=== PATIENT | male | born 2000 | race Caucasian/White ===

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

== ENCOUNTER 2019-04-17 17:03 | Emergency (ER) | payer OTHER ==
[~2019-04-17 17:03] MED LIST changes: +PENI500T PO
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
[2019-04-17 17:24] VITALS: BP 146/79
[2019-04-17] MEDS ORDERED: DIPHTH,PERTUSS(ACELL),TET TOX 0.5 ML DISP.SYRIN. VAX IM ONE (17:30)
== END 2019-04-17 17:32 | disposition home or self-care (01) ==
LOC: ER 17:03
DX: S51.011A Laceration without foreign body of right elbow, initial encounter (principal); F17.210 Nicotine dependence, cigarettes, uncomplicated; W25.XXXA Contact with sharp glass, initial encounter; Y93.89 Activity, other specified; Y92.89 Other specified places as the place of occurrence of the external cause; Y99.8 Other external cause status
CPT/HCPCS: 90471; 90715; 99283-25

== ENCOUNTER 2019-05-15 01:49 | Emergency (ER) | payer OTHER ==
[~2019-05-15] VITALS: Ht 160 cm; Wt 48.7 kg
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
[2019-05-15] MEDS ORDERED: LIDOCAINE 2%/EPI 1:100,000 20 ML VIAL. ONE (01:55)
[2019-05-15] MEDS ORDERED: LIDOCAINE 2%/EPI 1:100,000 20 ML VIAL. IJ ONE (02:00)
[2019-05-15] MEDS ORDERED: cefTRIAXone IM 1 GM VIAL IM ONE (02:30)
[2019-05-15] MEDS ORDERED: ACETAMINOPHEN 500 MG TABLET PO ONE (02:30)
[2019-05-15] MEDS ORDERED: CEPH-264 PO (02:36)
[2019-05-15] MEDS ORDERED: MUPIROCIN 2% TOPICAL OINTMENT 22GM TUBE. TP ONE (02:52)
[2019-05-15] MEDS ORDERED: cefTRIAXone SODIUM 1 GM VIAL ONE (02:52)
[2019-05-15 03:00] VITALS: BP 140/64
[2019-05-15] MEDS ORDERED: BACITRACIN ZINC TOPICAL OINT PACKET. TP ONE (03:00)
[2019-05-15] MEDS ORDERED: OXAP600T2 PO (13:01)
== END 2019-05-15 03:10 | disposition home or self-care (01) ==
LOC: ER 01:49
DX: S51.812A Laceration without foreign body of left forearm, initial encounter (principal); F17.210 Nicotine dependence, cigarettes, uncomplicated; W26.0XXA Contact with knife, initial encounter; Y93.89 Activity, other specified; Y92.89 Other specified places as the place of occurrence of the external cause; Y99.8 Other external cause status
CPT/HCPCS: 12004; 96372; 99283; J0696

== ENCOUNTER 2019-05-15 12:33 | Emergency (ER) | payer OTHER ==
[~2019-05-15] VITALS: Ht 160 cm; Wt 48.7 kg
[~2019-05-15 12:33] MED LIST changes: +CEPH-264 PO
[2019-05-15 12:52] VITALS: BP 142/67
[2019-05-15] MEDS ORDERED: NAPROXEN 500 MG TABLET PO ONE (13:00)
[2019-05-15] MEDS ORDERED: NEOMY/BACITR/POLYMYXIN OINT PACKET. TP ONE (13:00)
[2019-05-15] MEDS ORDERED: NAPROXEN 500 MG TABLET ONE (13:00)
[2019-05-15] MEDS ORDERED: OXAP600T2 PO (13:01)
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
== END 2019-05-15 13:08 | disposition home or self-care (01) ==
LOC: ER 12:33
DX: S51.812D Laceration without foreign body of left forearm, subsequent encounter (principal); F17.210 Nicotine dependence, cigarettes, uncomplicated; Z88.6 Allergy status to analgesic agent; Z88.1 Allergy status to other antibiotic agents; W26.0XXD Contact with knife, subsequent encounter
CPT/HCPCS: 99283

== ENCOUNTER 2019-05-26 15:19 | Emergency (ER) | payer OTHER ==
[~2019-05-26] VITALS: Ht 160 cm; Wt 48.7 kg
[~2019-05-26 15:19] MED LIST changes: +OXAP600T2 PO
[2019-05-26 15:33] VITALS: BP 124/68
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
== END 2019-05-26 15:33 | disposition home or self-care (01) ==
LOC: ER 15:19
DX: S51.812D Laceration without foreign body of left forearm, subsequent encounter (principal); F17.210 Nicotine dependence, cigarettes, uncomplicated; Z88.1 Allergy status to other antibiotic agents; Z88.6 Allergy status to analgesic agent; X58.XXXD Exposure to other specified factors, subsequent encounter
CPT/HCPCS: 99281

== ENCOUNTER 2021-10-29 15:49 | Emergency (ER) | payer OTHER ==
[~2021-10-29] VITALS: Ht 160 cm; Wt 48.7 kg
[2021-10-29 16:07] VITALS: BP 124/68
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
[2021-10-29] MEDS ORDERED: HYDR-2155 PO (18:28)
[2021-10-29] MEDS ORDERED: CEPH500C PO (18:28)
== END 2021-10-29 18:40 | disposition home or self-care (01) ==
LOC: ER 15:49
DX: S02.85XA Fracture of orbit, unspecified, initial encounter for closed fracture (principal); F17.210 Nicotine dependence, cigarettes, uncomplicated; Z88.1 Allergy status to other antibiotic agents; Z88.8 Allergy status to other drugs, medicaments and biological substances; Y08.89XA Assault by other specified means, initial encounter; Y93.89 Activity, other specified; Y92.89 Other specified places as the place of occurrence of the external cause; Y99.8 Other external cause status
CPT/HCPCS: 12011; 70150; 70450; 70486; 99284